=== PATIENT | female | born 1980 | race African-American/Black ===

== ENCOUNTER 2017-03-02 07:34 | Emergency (ER) | payer BC ==
[~2017-03-02] VITALS: Ht 152.4 cm; Wt 70.3 kg
--- NOTE | ~2017-03-02 | EKG ---
[address] [place] [address] ELECTROCARDIOGRAM REPORT Name: KAMAR MONAHAN [facility] [id number] Admission: 03/02/17 Attend Phys: Discharge: Date of : 80 Report #: [id number] THIS REPORT FOR: //name// [facility] ED Test Date: 2017-03-02 Test Time: 07:45:21 Pat Name: KAMAR MONAHAN Department: Room: Gender: F [employer]: MARINA : 1980 Requested By: Nemesio Donovan Order Number: [id number] MD: Florian Troy Measurements Intervals [place] Rate: 80 P: 42 UT: 150 QRS: 29 QRSD: 107 T: 25 QT: 377 QTc: 435 Interpretive Statements Sinus rhythm Normal tracing Compared to ECG 10/24/2009 23:05:45 No significant changes Electronically Signed On 03-02-2017 8:42:18 [employer] by Florian Troy [email or web address] <ELECTRONICALLY SIGNED> By: Florian Troy MD, [facility] 03/02/17 [id number] [id number] Florian Troy MD, FACC /EPI
[~2017-03-02 07:34] MED LIST: APAP500 PO; DERMOPLAST SPRA56 ML; IBUPROFEN 400400 M1; IBUPROFEN 600600 M1 PO; LANOLIN56 GM; LOCOID 0.1% CRE15 GM TOP; NOHOMEMEDICATIONS; SENNA; TUCKS MEDICATE1 EAC1
[2017-03-02 08:31] LABS: ABSOLUTE NEUTROPHILS 2.7 thou/uL (1.4-8.2); BASOPHILS 0.7 % (0.0-2.0); HEMATOCRIT 37.3 % (37.0-47.0); HEMOGLOBIN 12.7 gm/dL (12.0-15.0); LYMPHOCYTES 33.7 % (24.0-44.0); MCHC 34.1 g/dL (28.0-37.0); MCV 87.8 fL (80.0-100.0); MONOCYTES 6.6 % (1.0-8.0); PLATELET COUNT 220 thou/uL (150-400); RBC 4.25 mil/uL (4.20-5.00); RDW 12.6 % (10.5-14.5); WBC 4.9 thou/uL (4.0-11.0)
[2017-03-02 08:42] LABS: ANION GAP 7 mmol/L (7-16); BUN 14 mg/dL (7-18); CALCIUM 8.6 mg/dL (8.5-10.1); CHLORIDE 105 mmol/L (98-107); CO2 27 mmol/L (21-32); CREATININE 0.6 mg/dL (0.6-1.0); GLUCOSE 91 mg/dL (74-106); POTASSIUM 3.8 mmol/L (3.5-5.1); SODIUM 139 mmol/L (136-145)
[2017-03-02 08:48] LABS: TROPONIN-I < 0.04 ng/mL (<0.06)
[2017-03-02] MEDS ORDERED: NAPROSYN500 MG PO (09:28)
== END 2017-03-02 10:10 | disposition home or self-care (01) ==
LOC: ER 07:34
PROVIDERS: Emergency Medicine
DX: R07.89 Other chest pain (principal)